=== PATIENT | female | born 1945 | race Asian ===

== ENCOUNTER 2018-08-22 14:44 | Emergency (ER) | payer MEDICARE, MEDICAID ==
[~2018-08-22] VITALS: Ht 157.5 cm; Wt 68.2 kg
[~2018-08-22 14:44] MED LIST: ACET1TAB12 PO; ASPI81TA PO; CALC260T6; CLIN-5 PO; FERR325T28 PO; GABA-532 PO; GLIM4TAB79 PO; NYSPWD TP; OMEP20TA5 PO; SYN0.088T PO
[2018-08-22] MEDS ORDERED: ondansetron/PF 4mg/2ml inj IV ONE (15:15)
[2018-08-22] MEDS ORDERED: normal saline 1000ML IV soln IV ONE (15:15)
[2018-08-22] MEDS ORDERED: morphine 4 MG/ML inj SYRINge IV ONE (15:15)
[2018-08-22 15:38] LABS: BASOPHILS % (AUTO) 0.3 % (0-1); EOSINOPHILS # (AUTO) 0.3 X10'3 (0-0.9); EOSINOPHILS % (AUTO) 1.9 % (0-6); HEMATOCRIT 43.7 % (35.0-45.0); HEMOGLOBIN 14.5 g/dl (12.0-16.0); LYMPHOCYTES # (AUTO) 1.8 X10'3 (1.1-4.8); LYMPHOCYTES % (AUTO) 11.4 % (21-51); MEAN CORPUSCULAR HEMOGLOBIN 32.5 PG (27.0-31.0); MEAN CORPUSCULAR HGB CONC 33.2 % (33.0-36.5); MEAN CORPUSCULAR VOLUME 97.8 FL (78-98); MEAN PLATELET VOLUME 8.7 FL (7.4-10.4); MONOCYTES # (AUTO) 0.9 X10'3 (0-0.9); MONOCYTES % (AUTO) 5.9 % (2-12); NEUTROPHILS # (AUTO) 12.6 X10'3 (1.8-7.7); NEUTROPHILS % (AUTO) 80.5 % (42-75); PLATELET COUNT 213 X10'3 (140-440); RED BLOOD COUNT 4.47 X10'6 (4.20-5.60); RED CELL DISTRIBUTION WIDTH 12.9 % (11.5-14.5); WHITE BLOOD COUNT 15.6 X10'3 (4.5-11.0)
[2018-08-22 15:51] LABS: PROTHROMBIN TIME 10.3 SECONDS (9.0-12.0)
[2018-08-22 16:02] LABS: ALANINE AMINOTRANSFERASE 19 U/L (12-78); ALBUMIN 3.2 G/DL (3.4-5.0); ALBUMIN/GLOBULIN RATIO 0.8 (1.1-1.5); ALKALINE PHOSPHATASE 73 IU/L (46-116); ANION GAP 8 (8-16); ASPARTATE AMINO TRANSFERASE 16 U/L (10-37); BILIRUBIN,TOTAL 1.1 MG/DL (0.1-1.0); BLOOD UREA NITROGEN 29 MG/DL (7-18); BUN/CREATININE RATIO 27.6 (6.6-38.0); CALCIUM 9.2 MG/DL (8.5-10.1); CHLORIDE 102 MMOL/L (99-107); CREATININE 1.05 MG/DL (0.40-0.90); GLUCOSE 83 MG/DL (70-104); POTASSIUM 3.3 MMOL/L (3.5-5.1); SODIUM 140 MMOL/L (135-145); TOTAL CARBON DIOXIDE 29.9 MMOL/L (24-32); TOTAL PROTEIN 7.1 G/DL (6.4-8.2); eGFR 52 ML/MIN
[2018-08-22 16:03] LABS: LIPASE 144 U/L (73-393)
[2018-08-22] MEDS ORDERED: levoFLOXACIN 750MG TABLET PO ONE (18:30)
[2018-08-22 19:02] LABS: CLARITY,URINE CLEAR (Clear); COLOR,URINE YELLOW (Yellow); GLUCOSE, URINE 500 mg/dl (Neg); KETONES,URINE 15 mg/dl (Neg); LEUKOCYTE ESTERASE ,URINE NEGATIVE (Neg); NITRITES, URINE NEGATIVE (Neg); OCCULT BLOOD,URINE NEGATIVE (Neg); PH,URINE 5.5 (4.8-8.0); PROTEIN,URINE NEGATIVE (Neg); UROBILINOGEN,URINE 0.2 E.U/dL (0.2-1.0)
[2018-08-22 19:09] LABS: UA COLLECTION TYPE CLN CATCH MIDSTREAM
[2018-08-22] MEDS ORDERED: LEVO750T21 PO (19:19)
[2018-08-22 19:42] VITALS: BP 117/70
== END 2018-08-22 19:46 | disposition home or self-care (01) ==
LOC: ER 14:46
DX: D72.829 Elevated white blood cell count, unspecified (principal); R05 Cough; R79.89 Other specified abnormal findings of blood chemistry; R11.2 Nausea with vomiting, unspecified; E78.00 Pure hypercholesterolemia, unspecified; I10 Essential (primary) hypertension; E11.9 Type 2 diabetes mellitus without complications; E03.9 Hypothyroidism, unspecified; Z98.890 Other specified postprocedural states; Z56.0 Unemployment, unspecified; Z79.899 Other long term (current) drug therapy; Z79.82 Long term (current) use of aspirin
CPT/HCPCS: 36415; 71045; 74176; 80053; 81003; 83605; 83690; 84145; 85025; 85610; 87040; 87502; 87503; 93005; 96374; 96375; 99285; J2270; J2405; 96361

== ENCOUNTER 2019-08-18 12:26 | Emergency (ER) | payer MEDICARE, MEDICAID ==
[~2019-08-18] VITALS: Ht 152.4 cm; Wt 68.2 kg
[~2019-08-18 12:26] MED LIST changes: +GLIM4TAB4 PO; -GLIM4TAB79 PO
--- NOTE | 2019-08-18 14:24 | NUR ---
relieving RN for break, pt is resting quietly on gurney, resp even and unlabored, director of laboratory operations at bedside
[2019-08-18] MEDS ORDERED: normal saline 1000ml 1,000 ML IV ONE (14:35)
[2019-08-18 14:36] LABS: BASOPHILS # (AUTO) 0.1 X10'3 (0-0.2); BASOPHILS % (AUTO) 0.4 % (0-1); EOSINOPHILS # (AUTO) 0.1 X10'3 (0-0.9); HEMATOCRIT 47.7 % (35.0-45.0); HEMOGLOBIN 16.4 g/dl (12.0-16.0); LYMPHOCYTES # (AUTO) 2.2 X10'3 (1.1-4.8); LYMPHOCYTES % (AUTO) 17.5 % (21-51); MEAN CORPUSCULAR HEMOGLOBIN 34.3 PG (27.0-31.0); MEAN CORPUSCULAR HGB CONC 34.3 g/dL (33.0-36.5); MEAN CORPUSCULAR VOLUME 100.2 FL (78-98); MEAN PLATELET VOLUME 8.3 FL (7.4-10.4); MONOCYTES # (AUTO) 0.8 X10'3 (0-0.9); MONOCYTES % (AUTO) 6.5 % (2-12); NEUTROPHILS # (AUTO) 9.6 X10'3 (1.8-7.7); NEUTROPHILS % (AUTO) 74.6 % (42-75); PLATELET COUNT 222 X10'3 (140-440); RED BLOOD COUNT 4.76 X10'6 (4.20-5.60); RED CELL DISTRIBUTION WIDTH 13.2 % (11.5-14.5); WHITE BLOOD COUNT 12.8 X10'3 (4.5-11.0)
[2019-08-18 14:53] LABS: ALANINE AMINOTRANSFERASE 30 U/L (12-78); ALBUMIN 3.3 G/DL (3.4-5.0); ALBUMIN/GLOBULIN RATIO 0.8 (1.1-1.5); ALKALINE PHOSPHATASE 78 IU/L (46-116); ANION GAP 9 (8-16); ASPARTATE AMINO TRANSFERASE 22 U/L (10-37); BILIRUBIN,TOTAL 1.4 MG/DL (0.1-1.0); BLOOD UREA NITROGEN 17 MG/DL (7-18); BUN/CREATININE RATIO 16.3 (6.6-38.0); CALCIUM 8.9 MG/DL (8.5-10.1); CHLORIDE 100 MMOL/L (99-107); CREATININE 1.04 MG/DL (0.40-0.90); GLUCOSE 97 MG/DL (70-104); MAGNESIUM 1.7 MG/DL (1.5-2.4); PHOSPHORUS 3.6 MG/DL (2.3-4.5); POTASSIUM 3.3 MMOL/L (3.5-5.1); SODIUM 139 MMOL/L (135-145); TOTAL PROTEIN 7.5 G/DL (6.4-8.2); eGFR 52 ML/MIN
[2019-08-18] MEDS ORDERED: acetaminophen 325mg tablet PO ONE (15:50)
[2019-08-18 16:40] LABS: CLARITY,URINE CLEAR (Clear); COLOR,URINE YELLOW (Yellow); GLUCOSE, URINE 500 mg/dl (Neg); KETONES,URINE 15 mg/dl (Neg); LEUKOCYTE ESTERASE ,URINE NEGATIVE (Neg); NITRITES, URINE NEGATIVE (Neg); OCCULT BLOOD,URINE NEGATIVE (Neg); PROTEIN,URINE NEGATIVE (Neg); UROBILINOGEN,URINE 0.2 E.U/dL (0.2-1.0)
[2019-08-18 16:44] LABS: UA COLLECTION TYPE STRAIGHT CATH
[2019-08-18 17:49] VITALS: BP 101/63
== END 2019-08-18 17:52 | disposition home or self-care (01) ==
LOC: ER 12:27
DX: R53.1 Weakness (principal); E78.00 Pure hypercholesterolemia, unspecified; I10 Essential (primary) hypertension; E11.9 Type 2 diabetes mellitus without complications; E03.9 Hypothyroidism, unspecified; Z56.0 Unemployment, unspecified; Z98.890 Other specified postprocedural states; Z79.82 Long term (current) use of aspirin; Z79.899 Other long term (current) drug therapy
CPT/HCPCS: 36415; 71045; 80053; 81003; 82948; 83735; 84100; 84484; 85025; 93005; 99284; J7030; P9612

== ENCOUNTER 2020-04-11 08:55 | Emergency (ER) | payer MEDICARE, MEDICAID ==
[~2020-04-11] VITALS: Ht 152.4 cm; Wt 70.5 kg
[~2020-04-11 08:55] MED LIST changes: -GLIM4TAB4 PO; +GLIM4TAB7 PO
[2020-04-11] MEDS ORDERED: normal saline 1000ML IV soln IVB ONE (09:35)
[2020-04-11 09:56] LABS: BASOPHILS # (AUTO) 0.1 X10'3 (0-0.2); BASOPHILS % (AUTO) 0.5 % (0-1); EOSINOPHILS # (AUTO) 0.1 X10'3 (0-0.9); EOSINOPHILS % (AUTO) 1.2 % (0-6); HEMATOCRIT 48.6 % (35.0-45.0); HEMOGLOBIN 15.9 g/dl (12.0-16.0); LYMPHOCYTES # (AUTO) 2.5 X10'3 (1.1-4.8); LYMPHOCYTES % (AUTO) 20.4 % (21-51); MEAN CORPUSCULAR HEMOGLOBIN 32.4 PG (27.0-31.0); MEAN CORPUSCULAR HGB CONC 32.7 g/dL (33.0-36.5); MEAN CORPUSCULAR VOLUME 99.2 FL (78-98); MEAN PLATELET VOLUME 8.8 FL (7.4-10.4); MONOCYTES # (AUTO) 0.7 X10'3 (0-0.9); MONOCYTES % (AUTO) 5.8 % (2-12); NEUTROPHILS # (AUTO) 8.7 X10'3 (1.8-7.7); NEUTROPHILS % (AUTO) 72.1 % (42-75); PLATELET COUNT 241 X10'3 (140-440); RED CELL DISTRIBUTION WIDTH 13.7 % (11.5-14.5)
[2020-04-11 10:08] LABS: PARTIAL THROMBOPLASTIN TIME 26 SECONDS (22-32)
[2020-04-11 10:22] LABS: ALANINE AMINOTRANSFERASE 32 U/L (12-78); ALBUMIN 3.3 G/DL (3.4-5.0); ALBUMIN/GLOBULIN RATIO 0.9 (1.1-1.5); ALKALINE PHOSPHATASE 90 IU/L (46-116); ANION GAP 11 (8-16); ASPARTATE AMINO TRANSFERASE 21 U/L (10-37); BILIRUBIN,TOTAL 0.5 MG/DL (0.1-1.0); BLOOD UREA NITROGEN 15 MG/DL (7-18); BUN/CREATININE RATIO 13.8 (6.6-38.0); CHLORIDE 107 MMOL/L (99-107); CREATININE 1.09 MG/DL (0.40-0.90); GLUCOSE 135 MG/DL (70-104); POTASSIUM 3.2 MMOL/L (3.5-5.1); SODIUM 145 MMOL/L (135-145); TOTAL CARBON DIOXIDE 26.6 MMOL/L (24-32); TOTAL PROTEIN 6.9 G/DL (6.4-8.2); eGFR 49 ML/MIN
[2020-04-11] MEDS ORDERED: POTASSIUM BICARB 20meq eff tab 20 MEQ TABLET.EFF PO ONE (10:45)
[2020-04-11 11:19] LABS: CLARITY,URINE CLEAR (Clear); COLOR,URINE YELLOW (Yellow); GLUCOSE, URINE >=1000 mg/dl (Neg); KETONES,URINE NEGATIVE (Neg); LEUKOCYTE ESTERASE ,URINE TRACE (Neg); NITRITES, URINE NEGATIVE (Neg); OCCULT BLOOD,URINE NEGATIVE (Neg); PROTEIN,URINE NEGATIVE (Neg); UROBILINOGEN,URINE 0.2 E.U/dL (0.2-1.0)
[2020-04-11 11:22] LABS: UA COLLECTION TYPE OTHER
[2020-04-11 11:29] LABS: BACTERIA,URINE FEW /HPF (Neg); MUCUS STRANDS NONE SEEN /LPF (Neg); RBC,URINE 0-2 /HPF (0-2); SQUAMOUS EPITHELIAL CELL,UR MODERATE /LPF (FEW); WBC CLUMPS,URINE FEW /HPF (NEGATIVE)
[2020-04-11] MEDS ORDERED: CefTRIAXone 2gm/D5W 50ml 50 ML IV ONE (11:55)
--- NOTE | 2020-04-11 12:53 | NUR ---
daughter at bedside, abx infused and vs updated
[2020-04-11] MEDS ORDERED: CEPH500C5 PO (13:11)
[2020-04-11 13:24] VITALS: BP 129/76
== END 2020-04-11 13:25 | disposition home or self-care (01) ==
LOC: ER 08:56
DX: R53.1 Weakness (principal); N39.0 Urinary tract infection, site not specified; E78.00 Pure hypercholesterolemia, unspecified; I10 Essential (primary) hypertension; K21.9 Gastro-esophageal reflux disease without esophagitis; E11.9 Type 2 diabetes mellitus without complications; E03.9 Hypothyroidism, unspecified; G89.29 Other chronic pain; Z86.2 Personal history of diseases of the blood and blood-forming organs and certain disorders involving the immune mechanism; Z98.890 Other specified postprocedural states; Z56.0 Unemployment, unspecified; Z79.82 Long term (current) use of aspirin; Z79.2 Long term (current) use of antibiotics; Z79.899 Other long term (current) drug therapy
CPT/HCPCS: 36415; 71045; 80053; 81001; 82948; 84484; 85025; 85610; 85730; 87077; 87088; 87186; 93005; 96365; 99285; J0696; J7030

== ENCOUNTER 2023-10-11 11:40 | Emergency (ER) | payer MEDICARE, MEDICAID ==
[~2023-10-11] VITALS: Ht 157.5 cm; Wt 65.8 kg
[~2023-10-11 11:40] MED LIST changes: -ACET1TAB12 PO; +APIX5TAB3 PO; -CALC260T6; -CLIN-5 PO; +DEXA2TAB PO; +DULA1.5P SQ; +EMPA10TA PO; -GLIM4TAB7 PO; +INSU100I31 SQ; +LEVO100T9 PO; +LORA10TA7 PO; -NYSPWD TP; +OMEP20TA43 PO; -OMEP20TA5 PO; +POTA-207 PO; +ROSU10TA28 PO; -SYN0.088T PO
[2023-10-11 12:39] LABS: ALANINE AMINOTRANSFERASE 42 U/L (12-78); ALBUMIN 3.6 G/DL (3.4-5.0); ALBUMIN/GLOBULIN RATIO 0.9 (1.1-1.5); ALKALINE PHOSPHATASE 86 IU/L (46-116); ANION GAP 12 (8-16); ASPARTATE AMINO TRANSFERASE 37 U/L (10-37); BILIRUBIN,TOTAL 0.6 MG/DL (0.1-1.0); BLOOD UREA NITROGEN 10 MG/DL (7-18); BUN/CREATININE RATIO 10.8 (10.0-20.0); CALCIUM 9.6 MG/DL (8.5-10.1); CHLORIDE 100 MMOL/L (99-107); CREATININE 0.93 MG/DL (0.40-0.90); GLUCOSE 335 MG/DL (70-104); POTASSIUM 4.6 MMOL/L (3.5-5.1); SODIUM 136 MMOL/L (135-145); TOTAL CARBON DIOXIDE 24.3 MMOL/L (24-32); TOTAL PROTEIN 7.7 G/DL (6.4-8.2); eCRCL 40 ML/MIN; eGFR 58 ML/MIN
[2023-10-11 12:43] LABS: APTT 20 SECONDS (22-32); PROTHROMBIN TIME 9.8 SECONDS (9.0-12.0)
[2023-10-11 12:48] LABS: INR 0.9 INR
[2023-10-11 13:07] LABS: BASOPHILS % (AUTO) 0.1 % (0-1); EOSINOPHILS % (AUTO) 0 % (0-6); HEMATOCRIT 49.3 % (35.0-45.0); HEMOGLOBIN 16.5 g/dl (12.0-16.0); LYMPHOCYTES # (AUTO) 1.1 X10'3 (1.1-4.8); LYMPHOCYTES % (AUTO) 8.1 % (21-51); MEAN CORPUSCULAR HEMOGLOBIN 34.1 PG (27.0-31.0); MEAN CORPUSCULAR HGB CONC 33.5 g/dL (33.0-36.5); MEAN CORPUSCULAR VOLUME 101.7 FL (78-98); MEAN PLATELET VOLUME 8.3 FL (7.4-10.4); MONOCYTES # (AUTO) 0.5 X10'3 (0-0.9); MONOCYTES % (AUTO) 3.6 % (2-12); NEUTROPHILS % (AUTO) 88.2 % (42-75); PLATELET COUNT 284 X10'3 (140-440); RED BLOOD COUNT 4.84 X10'6 (4.20-5.60); RED CELL DISTRIBUTION WIDTH 14.3 % (11.5-14.5); WHITE BLOOD COUNT 13.6 X10'3 (4.5-11.0)
[2023-10-11 16:37] VITALS: PULSE 65; TEMP 98.3
[2023-10-11] MEDS ORDERED: OMEP40CA21 PO (18:50)
[2023-10-11 19:02] VITALS: BP 120/80; RESP 18; O2SAT 98
== END 2023-10-11 18:50 | disposition home or self-care (01) ==
LOC: ER 11:40
DX: R10.11 Right upper quadrant pain (principal); W19.XXXA Unspecified fall, initial encounter; E78.00 Pure hypercholesterolemia, unspecified; I10 Essential (primary) hypertension; K21.9 Gastro-esophageal reflux disease without esophagitis; E11.9 Type 2 diabetes mellitus without complications; E03.9 Hypothyroidism, unspecified; G89.29 Other chronic pain
CPT/HCPCS: 36415; 70450; 76700; 80053; 84145; 85025; 85610; 85730; 99284

== ENCOUNTER 2025-01-19 09:05 | Outpatient (CLI) | payer MEDICARE, MEDICAID ==
[2025-01-19] VITALS (7 sets, daily range): BP systolic 101–131; BP diastolic 54–72; PULSE 56–91; RESP 18; O2SAT 97
[~2025-01-19] VITALS: Ht 149.9 cm; Wt 51.3 kg
[~2025-01-19 09:05] MED LIST changes: +ALBU2.5V10 NEB; -APIX5TAB3 PO; +ASPI-1265 PO; -ASPI81TA PO; +CHOL20002; -DEXA2TAB PO; -DULA1.5P SQ; +DULA3PEN SQ; -EMPA10TA PO; +EMPA25TA PO; -FERR325T28 PO; +FERR325T7 PO; -INSU100I31 SQ; -LEVO100T9 PO; +LEVO75TA7 PO; -LORA10TA7 PO; -OMEP20TA43 PO; +PANT40TA54 PO; +POTA-205 PO; -POTA-207 PO; -ROSU10TA28 PO; +ROSU10TA72 PO
[2025-01-19] MEDS ORDERED: aminophylline 500mg/20ml vial ONE (11:45)
[2025-01-19] MEDS: regadenoson 0.4mg/5ml syringe IV ONE (11:54)
[2025-01-24] MEDS ORDERED: TRAM50TA2 PO (12:01)
[2025-01-24] MEDS ORDERED: CEPH-585 PO (12:01)
== END 2025-01-19 23:59 | disposition home or self-care (01) ==
LOC: NM 09:05
PROVIDERS: ATTEND Student in an Organized Health Care Education/Training Program
DX: R07.9 Chest pain, unspecified (principal)
CPT/HCPCS: 78452; 93017; A9500; J2785; J0280

== ENCOUNTER 2025-01-30 10:18 | Day surgery (SDC) | payer MEDICARE, MEDICAID ==
[2025-01-26 11:08] LABS: BASOPHILS % (AUTO) 0.3 % (0-1); EOSINOPHILS # (AUTO) 0.1 X10'3 (0-0.9); EOSINOPHILS % (AUTO) 0.6 % (0-6); HEMATOCRIT 44.9 % (35.0-45.0); HEMOGLOBIN 14.9 g/dl (12.0-16.0); LYMPHOCYTES # (AUTO) 1.8 X10'3 (1.1-4.8); MEAN CORPUSCULAR HEMOGLOBIN 32.5 PG (27.0-31.0); MEAN CORPUSCULAR HGB CONC 33.2 g/dL (33.0-36.5); MEAN CORPUSCULAR VOLUME 97.9 FL (78-98); MONOCYTES # (AUTO) 0.6 X10'3 (0-0.9); MONOCYTES % (AUTO) 5.7 % (2-12); NEUTROPHILS # (AUTO) 7.7 X10'3 (1.8-7.7); NEUTROPHILS % (AUTO) 75.4 % (42-75); PLATELET COUNT 279 X10'3 (140-440); RED BLOOD COUNT 4.59 X10'6 (4.20-5.60); RED CELL DISTRIBUTION WIDTH 13.6 % (11.5-14.5); WHITE BLOOD COUNT 10.1 X10'3 (4.5-11.0)
[2025-01-26 11:19] LABS: APTT 34 SECONDS (22-32); INR 1.1 INR; PROTHROMBIN TIME 11.1 SECONDS (9.0-12.0)
[2025-01-26 11:26] LABS: ANION GAP 10 (8-16); BLOOD UREA NITROGEN 13 MG/DL (7-18); BUN/CREATININE RATIO 21.7 (10.0-20.0); CHLORIDE 104 MMOL/L (99-107); CHOL/HDL RATIO 3.5 (0.00-4.99); CHOLESTEROL 138 MG/DL (0-200); GLUCOSE 233 MG/DL (70-104); HDL CHOLESTEROL 40 MG/DL (35-60); LDL CHOLESTEROL 72 MG/DL (50-100); POTASSIUM 3.1 MMOL/L (3.5-5.1); SODIUM 140 MMOL/L (135-145); TOTAL CARBON DIOXIDE 25.7 MMOL/L (24-32); TRIGLYCERIDES 135 MG/DL (20-135); eGFR > 90 ML/MIN
[2025-01-30] VITALS (10 sets, daily range): BP systolic 117–140; BP diastolic 73–96; PULSE 62–72; RESP 12–18; TEMP 97.9; O2SAT 93–97
[~2025-01-30] VITALS: Ht 149.9 cm; Wt 49.5 kg
[~2025-01-30 10:18] MED LIST changes: +CEPH-585 PO; +TRAM50TA2 PO
[2025-01-30] MEDS ORDERED: LORazepam 0.5 MG tablet PO PRN (10:35)
[2025-01-30] MEDS ORDERED: TRAM50TA2 PO (10:39)
[2025-01-30] MEDS ORDERED: LEVO100T9 PO (10:41)
[2025-01-30] MEDS ORDERED: EMPA10TA PO (10:42)
[2025-01-30] MEDS ORDERED: MIRT7.5T11 PO (10:43)
[2025-01-30] MEDS ORDERED: APIX5TAB3 PO (10:44)
[2025-01-30] MEDS ORDERED: ASPI-1265 PO (10:46)
[2025-01-30] MEDS ORDERED: CEPH-585 PO (10:47)
[2025-01-30] MEDS ORDERED: FERR325T33 PO (10:48)
[2025-01-30] MEDS ORDERED: PANT20TA18 PO (10:49)
[2025-01-30] MEDS ORDERED: ROSU10TA72 PO (10:50)
[2025-01-30] MEDS: normal saline 1,000 ML IV SCH (11:18)
[2025-01-30] MEDS: diphenhydrAMINE 25mg capsule PO PRN (11:20)
[2025-01-30] MEDS ORDERED: LIDOcaine 1% (10mg/ml) 2ml vial ONE (11:48)
[2025-01-30] MEDS ORDERED: heparin 1,000unit/ml 10ml vial 10 ML ONE (11:48)
[2025-01-30] MEDS ORDERED: verapamil 2.5 mg/ml inj IV ONE (11:48)
[2025-01-30] MEDS ORDERED: iohexol 350MG/ML 100ml bottle IV ONE (11:48)
[2025-01-30] MEDS ORDERED: nitroGLYCERIN 500mcg/5mL D5W 5 ML IV ONE (11:50)
[2025-01-30] MEDS ORDERED: midazolam 1 mg/ML 2ml injection ONE (12:10)
[2025-01-30] MEDS ORDERED: fentaNYL/PF 50MCG/1 ML 2ML syringe ONE (12:10)
[2025-01-30] MEDS ORDERED: HYDROcodone/acetaminophen 5mg/325mg tablet PO PRN (14:15)
[2025-01-30] MEDS ORDERED: HYDROcodone/acetaminophen 10/325mg tab PO PRN (14:15)
== END 2025-01-30 16:05 | disposition home or self-care (01) ==
LOC: SSTAY O 10:18
PROVIDERS: ATTEND Student in an Organized Health Care Education/Training Program
DX: R94.39 Abnormal result of other cardiovascular function study (principal); I25.10 Atherosclerotic heart disease of native coronary artery without angina pectoris; I10 Essential (primary) hypertension; E78.5 Hyperlipidemia, unspecified; E11.9 Type 2 diabetes mellitus without complications; Z79.01 Long term (current) use of anticoagulants; Z79.899 Other long term (current) drug therapy; Z98.890 Other specified postprocedural states; Z88.8 Allergy status to other drugs, medicaments and biological substances; Z86.19 Personal history of other infectious and parasitic diseases; Z79.82 Long term (current) use of aspirin
CPT/HCPCS: 36415; 80048; 80061; 85025; 85610; 85730; 93005; 93458; 99152; A4615; A6258; A6402; C1894; J1644; J2003; J2250; J3010; J3490; J7030; Q0163; Q9967; Z7610; 99153